=== PATIENT | female | born 1960 | race Caucasian/White ===

== ENCOUNTER 2022-01-21 11:17 | Emergency (ER) | payer MEDICAID ==
[~2022-01-21] VITALS: Ht 160 cm; Wt 110.0 kg
[2022-01-21 11:25] VITALS: BP 137/108
[2022-01-21] MEDS ORDERED: COZAAR25 MG PO (11:35)
[2022-01-21] MEDS ORDERED: [UNRECOGNIZED DRUG - OTHER] PO (11:35)
[2022-01-21] MEDS ORDERED: MUSCLE RELAXER (11:36)
[2022-01-21] MEDS ORDERED: FLEXERIL5 M1 PO (11:36)
[2022-01-21 12:15] VITALS: BP 110/85
[2022-01-21 12:30] VITALS: BP 127/79
[2022-01-21] MEDS ORDERED: TRAMADOL HYDROC50 M1 PO (12:40)
[2022-01-21] MEDS ORDERED: CYCLOBENZAPRINE10 MG PO (12:40)
[2022-01-21] MEDS ORDERED: ZOFRAN4 MG/TAB PO (12:40)
[2022-01-21] MEDS ORDERED: DECADRON4 M1 PO (12:43)
[2022-01-21 12:45] VITALS: BP 130/82
[2022-01-21 12:47] VITALS: BP 130/82
== END 2022-01-21 13:01 | disposition home or self-care (01) ==
LOC: ED 11:17
DX: M54.50 Low back pain, unspecified (principal); I10 Essential (primary) hypertension